=== PATIENT | female | born 1995 | race Caucasian/White ===

== ENCOUNTER → 2017-08-04 | Outpatient (CLI) | payer BC ==
[~2017-08-04] MED LIST: ACET1TAB43 PO; FERR325T18 PO; FRS325T PO; IBP600T1 PO; IBUP-1773 PO; LVF500T PO; METR500T17 PO; ONDA8TAB13 PO; PNV1CAPS13 PO; PREN-53 PO; PROM25TA14 PO; TRAM50TA2 PO
--- NOTE | 2017-08-04 17:35 | Diagnostic Imaging Report ---
INDICATION: Bleeding with IUD. FINDINGS: The uterus measures 7.4 x 4.7 x 4.4 cm. Endometrial thickness is 4 mm. IUD is in satisfactory position. There are no myometrial or endometrial masses. Both ovaries are normal in size and morphology and demonstrate normal blood flow. There are no adnexal masses. IMPRESSION: IUD appears to be in satisfactory position. Otherwise unremarkable pelvic ultrasound. Dictated by: Dictated on workstation # [id number]
== END ==
LOC: RAD 16:57
PROVIDERS: ATTEND Obstetrics & Gynecology
DX: N92.1 Excessive and frequent menstruation with irregular cycle (principal); Z97.5 Presence of (intrauterine) contraceptive device
CPT/HCPCS: 76830; 76856

== ENCOUNTER 2018-02-28 16:10 | Day surgery (SDC) | payer BC ==
[~2018-02-28] VITALS: Ht 160 cm; Wt 78.6 kg
--- NOTE | 2018-02-28 16:25 | ED Abdominal Pain ---
General Stated Complaint: ABD PAIN/VOMITING/CHILLS Source of Information: Patient Exam Limitations: No Limitations History of Present Illness Date Seen by Provider: Feb 28, 2018 Time Seen by Provider: 16:23 Initial Comments To ER with reports of abdominal pain fever nausea. This began yesterday evening at about 7 PM while at a family member's house. The abdominal pain was rather diffuse she had chills and vomited once. No diarrhea or bowel changes. She then went home and tossed and turned throughout the night due to the pain. Today the pain seems a little bit better though it is still present and more localized to the right side of the abdomen. No fevers or chills today. Persistent nausea no vomiting and no bowel changes. Timing/Duration: 12-24 Hours, Changing Over Time Severity/Quality: Moderate Location: Periumbilical Radiation: No Radiation Activities at Onset: None Associated Symptoms: Back Pain, Fever/Chills, Nausea/Vomiting Allergies and Home Medications Allergies Coded Allergies: No Known Drug Allergies (Unverified , 02/28/18) Home Medications Ferrous Sulfate 325 Mg Tablet, 325 MG PO DAILY Prescribed by: JORGE FRIED on 08/13/15826 Ibuprofen 600 Mg Tablet, 600 MG PO Q6H Prescribed by: JORGE FRIED on 08/13/15826 Eke326/Iron Fumarate/FA/Dss 1 Each Tablet, 1 EACH PO DAILY, (Reported) Patient Home Medication List Home Medication List Reviewed: Yes Review of Systems Review of Systems Constitutional: see HPI, chills EENTM: No Symptoms Reported Respiratory: No Symptoms Reported Cardiovascular: No Symptoms Reported Gastrointestinal: See HPI, Abdominal Pain; Denies Constipated, Denies Diarrhea ; Nausea, Vomiting Genitourinary: No Symptoms Reported; Denies Burning, Denies Discharge, Denies Drainage, Denies Frequency, Denies Flank Pain, Denies Hematuria, Denies Incontinence, Denies Pain, Denies Urgency Musculoskeletal: no symptoms reported Skin: no symptoms reported Psychiatric/Neurological: No Symptoms Reported Past Lcrdcmq-Atvcaz-Cmwhbl Hx Patient Social History Recent Foreign Travel: No Contact w/Someone Who Travel: No Immunizations Up To Date Tetanus Booster (TDap): Less than 5yrs Date of Influenza Vaccine: Jun 20, 2015 Past Medical History Asthma Reproductive Disorders: No Female Reproductive Disorders: Denies Sexually Transmitted Disease: No HIV/AIDS: No Loss of Vision: Denies Hearing Impairment: Denies Adverse Reaction/Blood Tranf: No Family Medical History Diabetes mellitus (BROTHER AND GRANDFATHER) Physical Exam Vital Signs Vital Signs - First Documented 02/28/18 16:15 Temp 97.9 Pulse 77 Resp 16 B/P (MAP) 115/86 (96) Pulse Ox 99 Capillary Refill : Height/Weight/BMI Height: 5'3.00" Weight: 188lbs. 0.0oz. 85.726334ip; 33.3 BMI Method: General Appearance: WD/WN, no apparent distress HEENT: PERRL/EOMI Neck: non-tender, full range of motion Respiratory: normal breath sounds, no respiratory distress, no accessory muscle use Cardiovascular: regular rate, rhythm, no murmur Gastrointestinal: normal bowel sounds, soft; No distended, No guarding, No rebound; tenderness Extremities: normal range of motion, non-tender Back: No CVA tenderness (R), No CVA tenderness (L) Neurologic/Psychiatric: alert, normal mood/affect, oriented x 3 Skin: normal color, warm/dry Progress/Results/Core Measures Results/Orders Lab Results Laboratory Tests Test 02/28/18 16:15 02/28/18 16:25 Range/Units Urine Color YELLOW Urine Clarity CLEAR Urine pH 7 5-9 Urine Specific Blanchard 1.010 L 1.016-1.022 Urine Protein NEGATIVE NEGATIVE Urine Glucose (UA) NEGATIVE NEGATIVE Urine Ketones NEGATIVE NEGATIVE Urine Nitrite NEGATIVE NEGATIVE Urine Bilirubin NEGATIVE NEGATIVE Urine Urobilinogen NORMAL NORMAL MG/DL Urine Leukocyte Esterase 1+ H NEGATIVE Urine RBC (Auto) 4+ H NEGATIVE Urine RBC NONE /HPF Urine WBC 0-2 /HPF Urine Squamous Epithelial Cells 5-10 /HPF Urine Crystals NONE /LPF Urine Bacteria FEW H /HPF Urine Casts NONE /LPF Urine Mucus NEGATIVE /LPF Urine Other N /HPF Urine Yeast MODERATE H /HPF Urine Culture Indicated YES White Blood Count 9.7 4.3-11.0 10^3/uL Red Blood Count 4.56 4.35-5.85 10^6/uL Hemoglobin 13.2 11.5-16.0 G/DL Hematocrit 40 35-52 % Mean Corpuscular Volume 88 80-99 FL Mean Corpuscular Hemoglobin 29 25-34 PG Mean Corpuscular Hemoglobin Concent 33 32-36 G/DL Red Cell Distribution Width 13.4 10.0-14.5 % Platelet Count 268 130-400 10^3/uL Mean Platelet Volume 10.3 7.4-10.4 FL Neutrophils (%) (Auto) 67 42-75 % Lymphocytes (%) (Auto) 24 12-44 % Monocytes (%) (Auto) 8 0-12 % Eosinophils (%) (Auto) 1 0-10 % Basophils (%) (Auto) 0 0-10 % Neutrophils # (Auto) 6.5 1.8-7.8 X 10^3 Lymphocytes # (Auto) 2.3 1.0-4.0 X 10^3 Monocytes # (Auto) 0.8 0.0-1.0 X 10^3 Eosinophils # (Auto) 0.1 0.0-0.3 10^3/uL Basophils # (Auto) 0.0 0.0-0.1 10^3/uL Sodium Level 138 135-145 MMOL/L Potassium Level 3.8 3.6-5.0 MMOL/L Chloride Level 105 98-107 MMOL/L Carbon Dioxide Level 22 21-32 MMOL/L Anion Gap 11 5-14 MMOL/L Blood Urea Nitrogen 11 7-18 MG/DL Creatinine 0.67 0.60-1.30 MG/DL Estimat Glomerular Filtration Rate > 60 BUN/Creatinine Ratio 16 Glucose Level 96 70-105 MG/DL Calcium Level 9.5 8.5-10.1 MG/DL Corrected Calcium 9.1 8.5-10.1 MG/DL Total Bilirubin 1.0 0.1-1.0 MG/DL Aspartate Amino Transf (AST/SGOT) 16 5-34 U/L Alanine Aminotransferase (ALT/SGPT) 23 0-55 U/L Alkaline Phosphatase 53 40-136 U/L Total Protein 8.3 H 6.4-8.2 GM/DL Albumin 4.5 3.2-4.5 GM/DL Serum Test, Qualitative NEGATIVE NEGATIVE My Orders Orders - ANNA CAREY APRN Cbc With Automated Diff (02/28/18 16:22) Hcg,Qualitative Serum (02/28/18 16:22) Comprehensive Metabolic Panel (02/28/18 16:22) Ua Culture If Indicated (02/28/18 16:22) Iv Heplock-Insert (Order) (02/28/18 16:22) Ct Abd/Pelv W (Appendicitis) (02/28/18 16:22) Ketorolac Injection (Toradol Injection) (02/28/18 16:30) Ondansetron Injection (Zofran Injectio (02/28/18 16:30) Urine Culture (02/28/18 16:15) Iohexol Injection (Omnipaque 350 Mg/Ml 1 (02/28/18 17:00) Ns (Ivpb) (Sodium Chloride 0.9%) (02/28/18 17:00) Medications Given in ED Current Medications Medications Dose Ordered Sig/Massiel Route Start Time Stop Time Status Last Admin Dose Admin Iohexol 100 ml ONCE ONCE IV 02/28/18 17:00 02/28/18 17:01 DC 02/28/18 16:54 100 ML Ketorolac Tromethamine 15 mg ONCE ONCE IVP 02/28/18 16:30 02/28/18 16:31 DC 02/28/18 16:32 15 MG Ondansetron HCl 4 mg ONCE ONCE IVP 02/28/18 16:30 02/28/18 16:31 DC 02/28/18 16:32 4 MG Sodium Chloride 250 ml ONCE ONCE IV 02/28/18 17:00 02/28/18 17:01 DC 02/28/18 16:54 80 ML Vital Signs/I&O 02/28/18 16:15 Temp 97.9 Pulse 77 Resp 16 B/P (MAP) 115/86 (96) Pulse Ox 99 Diagnostic Imaging Diagonstic Imaging: CT Plain Films/CT/US/NM/MRI: abdomen, pelvis Comments NAME: DENTON DUQUE [facility] REC#: [id number] PT STATUS: REG ER : 1995 PHYSICIAN: ANNA CAREY TOOLROOM CLERK ADMIT DATE: 02/28/18/ER Draft Date of Exam:02/28/18 CT ABD/PELV W (APPENDICITIS) PROCEDURE: CT abdomen and pelvis with contrast, rule out appendicitis. TECHNIQUE: Multiple contiguous axial images were obtained through the abdomen and pelvis after the administration of intravenous contrast. INDICATION: Right lower quadrant pain with nausea, vomiting, and chills x24 hours. CORRELATION STUDY: 12/17/2013. FINDINGS: LOWER THORAX: Clear. LIVER: 8 mm rounded low-density foci in the anterior aspect of the left lobe of the liver are incompletely characterized but favor probable cysts or perhaps hemangioma. GALLBLADDER: Present and unremarkable. No bile duct dilatation. SPLEEN: Unremarkable. PANCREAS: Unremarkable. ADRENAL GLANDS: Unremarkable. KIDNEYS: Normal configuration. No calcification or obstruction. ABDOMINAL AORTA: Unremarkable, nonaneurysmal. GASTROINTESTINAL TRACT: The appendix is located in the right lower quadrant, projects medially and slightly folded on itself. Appendix is abnormally dilated to 12 mm with wall thickening. The remainder of the gastrointestinal tract appearing unremarkable. No obstruction. No abscess formation or free air. URINARY BLADDER: Decompressed. REPRODUCTIVE: Intrauterine contraceptive device is present. Uterus is mildly prominent. Small amount of pelvic fluid. Probable right ovarian cyst. OSSEOUS STRUCTURES: No acute abnormality. OTHER: None. IMPRESSION: 1. The appendix is dilated with what appears to be wall thickening with some enhancement suggestive of likely early or lower-grade changes of acute appendicitis. No evidence for abscess formation or perforation at this time. Dictated on workstation # [id number] Dict: 02/28/18 1709 Trans: 02/28/18 1720 [id number] Interpreted by: ANISA BEST DO Electronically signed by: Departure Impression Primary Impression: Appendicitis Qualified Codes: K35.30 - Acute appendicitis with localized peritonitis, without perforation or gangrene Disposition: ADMITTED INPATIENT Condition: Stable Admissions Decision to Admit Reason: Admit from ER (General) Decision to Admit/Date: Feb 28, 2018 Time/Decision to Admit Time: 17:21 Departure-Patient Inst. Referrals: MARY ANN HARRIS DO (PCP/Family) Primary Care Physician ANNA CAREY APRN Feb 28, 2018 16:25
[2018-02-28] MEDS ORDERED: KETOROLAC 30 MG/ML VIAL IVP ONE (16:30)
[2018-02-28] MEDS ORDERED: ONDANSETRON 4 MG/2 ML (SDV) Z0FRAN IVP ONE (16:30)
[2018-02-28 16:32] LABS: BASOPHILS % (AUTO) 0 % (0-10); EOSINOPHILS # (AUTO) 0.1 10^3/uL (0.0-0.3); EOSINOPHILS % (AUTO) 1 % (0-10); HEMATOCRIT 40 % (35-52); HEMOGLOBIN 13.2 G/DL (11.5-16.0); LYMPHOCYTES # (AUTO) 2.3 X 10^3 (1.0-4.0); LYMPHOCYTES % (AUTO) 24 % (12-44); MEAN CORPUSCULAR HEMOGLOBIN 29 PG (25-34); MEAN CORPUSCULAR HGB CONC 33 G/DL (32-36); MEAN CORPUSCULAR VOLUME 88 FL (80-99); MEAN PLATELET VOLUME 10.3 FL (7.4-10.4); MONOCYTES # (AUTO) 0.8 X 10^3 (0.0-1.0); MONOCYTES % (AUTO) 8 % (0-12); NEUTROPHILS # (AUTO) 6.5 X 10^3 (1.8-7.8); NEUTROPHILS % (AUTO) 67 % (42-75); PLATELET COUNT 268 10^3/uL (130-400); RED BLOOD COUNT 4.56 10^6/uL (4.35-5.85); RED CELL DISTRIBUTION WIDTH 13.4 % (10.0-14.5); WHITE BLOOD COUNT 9.7 10^3/uL (4.3-11.0)
[2018-02-28 16:33] LABS: BILIRUBIN,URINE NEGATIVE (NEGATIVE); CLARITY,URINE CLEAR; COLOR,URINE YELLOW; GLUCOSE, URINE (UA) NEGATIVE (NEGATIVE); KETONES,URINE NEGATIVE (NEGATIVE); LEUKOCYTE ESTERASE ,URINE 1+ (NEGATIVE); NITRITE,URINE NEGATIVE (NEGATIVE); PH,URINE 7 (5-9); PROTEIN,URINE NEGATIVE (NEGATIVE); UROBILINOGEN,URINE NORMAL (NORMAL)
[2018-02-28 16:42] LABS: BACTERIA,URINE FEW /HPF; WBC,URINE 0-2 /HPF
[2018-02-28 16:43] LABS: URINE OTHER N /HPF; YEAST,URINE MODERATE /HPF
[2018-02-28 16:57] LABS: ALANINE AMINOTRANSFERASE 23 U/L (0-55); ALBUMIN 4.5 GM/DL (3.2-4.5); ALKALINE PHOSPHATASE 53 U/L (40-136); BUN/CREATININE RATIO 16; CALCIUM 9.5 MG/DL (8.5-10.1); CARBON DIOXIDE 22 MMOL/L (21-32); CHLORIDE 105 MMOL/L (98-107); CREATININE SERUM 0.67 MG/DL (0.60-1.30); GFR ESTIMATED > 60; GLUCOSE 96 MG/DL (70-105); POTASSIUM 3.8 MMOL/L (3.6-5.0); SODIUM 138 MMOL/L (135-145); TOTAL PROTEIN 8.3 GM/DL (6.4-8.2)
[2018-02-28] MEDS ORDERED: IOHEXOL 350 MG/ML 100 ML (OMNIPAQUE 350) VIAL IV ONE (17:00)
[2018-02-28] MEDS ORDERED: NS 250 ML (IVPB) BAG IV ONE (17:00)
--- NOTE | 2018-02-28 17:20 | Diagnostic Imaging Report ---
PROCEDURE: CT abdomen and pelvis with contrast, rule out appendicitis. TECHNIQUE: Multiple contiguous axial images were obtained through the abdomen and pelvis after the administration of intravenous contrast. INDICATION: Right lower quadrant pain with nausea, vomiting, and chills x24 hours. CORRELATION STUDY: 12/17/2013. FINDINGS: LOWER THORAX: Clear. LIVER: 8 mm rounded low-density foci in the anterior aspect of the left lobe of the liver are incompletely characterized but favor probable cysts or perhaps hemangioma. GALLBLADDER: Present and unremarkable. No bile duct dilatation. SPLEEN: Unremarkable. PANCREAS: Unremarkable. ADRENAL GLANDS: Unremarkable. KIDNEYS: Normal configuration. No calcification or obstruction. ABDOMINAL AORTA: Unremarkable, nonaneurysmal. GASTROINTESTINAL TRACT: The appendix is located in the right lower quadrant, projects medially and slightly folded on itself. Appendix is abnormally dilated to 12 mm with wall thickening. The remainder of the gastrointestinal tract appearing unremarkable. No obstruction. No abscess formation or free air. URINARY BLADDER: Decompressed. REPRODUCTIVE: Intrauterine contraceptive device is present. Uterus is mildly prominent. Small amount of pelvic fluid. Probable right ovarian cyst. OSSEOUS STRUCTURES: No acute abnormality. OTHER: None. IMPRESSION: 1. The appendix is dilated with what appears to be wall thickening with some enhancement suggestive of likely early or lower-grade changes of acute appendicitis. No evidence for abscess formation or perforation at this time. Dictated by: Dictated on workstation # [id number]
[2018-02-28] MEDS ORDERED: LACTATED RINGERS 1,000 ML IV SCH (17:30)
--- OUTSIDE RECORDS SUMMARY | 2018-02-28 18:49 | XMS REPORT ---
Author Author JONATHAN DAVIS [facility] Address [address] [place] [address] Care Team Providers Care Reduction Furnace Operator Name Role Phone JONATHAN DAVIS Unavailable PROBLEMS Unknown Problems ALLERGIES No Information SOCIAL HISTORY Never Assessed PLAN OF CARE VITAL SIGNS MEDICATIONS No Known Medications RESULTS No Results PROCEDURES Procedure Date Ordered Result Body Site PULMONARY FUNCTION TEST (IN-HOUSE) 2016-10-08 N/A RESPIRATORY FLOW VOLUME LOOP October 08, 2016 SPIROMETRY October 08, 2016 NEB/KYLE DEMO October 08, 2016 SPRIOMETRY CHALLENGE October 08, 2016 IMMUNIZATIONS No Known Immunizations
--- OUTSIDE RECORDS SUMMARY | 2018-02-28 18:49 | XMS REPORT ---
Author Author JONATHAN DAVIS [facility] Address [address] [place] [address] Care Team Providers Care Fire Marshal Refinery Name Role Phone JONATHAN DAVIS Unavailable PROBLEMS Unknown Problems ALLERGIES No Information SOCIAL HISTORY Never Assessed PLAN OF CARE VITAL SIGNS MEDICATIONS No Known Medications RESULTS No Results PROCEDURES No Known procedures IMMUNIZATIONS No Known Immunizations
--- OUTSIDE RECORDS SUMMARY | 2018-02-28 18:50 | XMS REPORT ---
Author Author JONATHAN DAVIS [facility] Address [address] [place] [address] Care Team Providers Care Studio Control Operator Name Role Phone JONATHAN DAVIS Unavailable PROBLEMS Unknown Problems ALLERGIES No Known Allergies SOCIAL HISTORY Never Assessed PLAN OF CARE Activity Details Follow Up prn Reason: VITAL SIGNS Height 63 in 2016-09-29 Weight 163 lbs 2016-09-29 Temperature 98.2 degrees Fahrenheit 2016-09-29 Heart Rate 64 bpm 2016-09-29 Respiratory Rate 18 2016-09-29 Oximetry on room air:99 % 2016-09-29 BMI 28.87 kg/m2 2016-09-29 Blood pressure systolic 100 mmHg 2016-09-29 Blood pressure diastolic 70 mmHg 2016-09-29 MEDICATIONS Medication Instructions Dosage Frequency Start Date End Date Duration Status Mirena Active RESULTS Name Result Date Reference Range CBC 2016-09-29 WBC 6.2 3.4-10.8 RBC 4.44 3.77-5.28 Hemoglobin 12.4 11.1-15.9 Hematocrit 38.7 34.0-46.6 MCV 87 79-97 MCH 27.9 26.6-33.0 MCHC 32.0 31.5-35.7 RDW 14.1 12.3-15.4 Platelets 266 150-379 Neutrophils 47 Lymphs 40 Monocytes 8 Eos 5 Basos 0 Neutrophils (Absolute) 2.8 1.4-7.0 Lymphs (Absolute) 2.5 0.7-3.1 Monocytes(Absolute) 0.5 0.1-0.9 Eos (Absolute) 0.3 0.0-0.4 Baso (Absolute) 0.0 0.0-0.2 Immature Granulocytes 0 Immature Grans (Abs) 0.0 0.0-0.1 PROCEDURES Procedure Date Ordered Result Body Site MEASURE BLOOD OXYGEN LEVEL September 29, 2016 COMPLETE CBC W/AUTO DIFF WBC September 29, 2016 COMPREHEN METABOLIC PANEL September 29, 2016 VENIPUNCT, ROUTINE* September 29, 2016 IMMUNIZATIONS No Known Immunizations
--- OUTSIDE RECORDS SUMMARY | 2018-02-28 18:50 | XMS REPORT | Continuity of Care Document ---
Author Author [facility] Address Unknown Phone Unavailable Allergies There is no data. Medications There is no data. Problems Date Dx Coded Attending Type Code Diagnosis Diagnosed By 11/12/2007 462 Pharyngitis Acute 11/12/2007 462 Pharyngitis Acute 11/12/2007 462 Pharyngitis Acute 11/12/2007 RAJESH HILL DO 462 Pharyngitis Acute 11/12/2007 462 Pharyngitis Acute 11/12/2007 462 Pharyngitis Acute 11/12/2007 RAJESH HILL DO 462 Pharyngitis Acute 11/12/2007 462 Pharyngitis Acute 11/12/2007 RAJESH HILL DO 462 Pharyngitis Acute 11/12/2007 RAJESH HILL DO 462 Pharyngitis Acute 08/09/2008 477.9 ALLERGIC RHINITIS 08/09/2008 493.02 Asthma Extrinsic - With Acute Exacerbation 08/09/2008 477.9 ALLERGIC RHINITIS 08/09/2008 493.02 Asthma Extrinsic - With Acute Exacerbation 08/09/2008 477.9 ALLERGIC RHINITIS 08/09/2008 493.02 Asthma Extrinsic - With Acute Exacerbation 08/09/2008 RAJESH HILL DO 477.9 ALLERGIC RHINITIS 08/09/2008 RAJESH HILL DO 493.02 Asthma Extrinsic - With Acute Exacerbation 08/09/2008 477.9 ALLERGIC RHINITIS 08/09/2008 493.02 Asthma Extrinsic - With Acute Exacerbation 08/09/2008 477.9 ALLERGIC RHINITIS 08/09/2008 493.02 Asthma Extrinsic - With Acute Exacerbation 08/09/2008 RAJESH HILL DO 477.9 ALLERGIC RHINITIS 08/09/2008 RAJESH HILL DO 493.02 Asthma Extrinsic - With Acute Exacerbation 08/09/2008 477.9 ALLERGIC RHINITIS 08/09/2008 493.02 Asthma Extrinsic - With Acute Exacerbation 08/09/2008 RAJESH HILL DO 477.9 ALLERGIC RHINITIS 08/09/2008 RAJESH HILL DO 493.02 Asthma Extrinsic - With Acute Exacerbation 08/09/2008 RAJESH HILL DO 477.9 ALLERGIC RHINITIS 08/09/2008 RAJESH HILL DO 493.02 Asthma Extrinsic - With Acute Exacerbation 08/13/2008 493.92 Asthma With Acute Exacerbation 08/13/2008 493.92 Asthma With Acute Exacerbation 08/13/2008 493.92 Asthma With Acute Exacerbation 08/13/2008 RAJESH HILL DO 493.92 Asthma With Acute Exacerbation 08/13/2008 493.92 Asthma With Acute Exacerbation 08/13/2008 493.92 Asthma With Acute Exacerbation 08/13/2008 RAJESH HILL DO 493.92 Asthma With Acute Exacerbation 08/13/2008 493.92 Asthma With Acute Exacerbation 08/13/2008 RAJESH HILL DO 493.92 Asthma With Acute Exacerbation 08/13/2008 RAJESH HILL DO 493.92 Asthma With Acute Exacerbation 09/13/2008 493.90 ASTHMA 09/13/2008 719.46 Patellofemoral Syndrome Left 09/13/2008 V20.2 Visit For: Well Child Visit 09/13/2008 493.90 ASTHMA 09/13/2008 719.46 Patellofemoral Syndrome Left 09/13/2008 V20.2 Visit For: Well Child Visit 09/13/2008 493.90 ASTHMA 09/13/2008 719.46 Patellofemoral Syndrome Left 09/13/2008 V20.2 Visit For: Well Child Visit 09/13/2008 RAJESH HILL DO 493.90 ASTHMA 09/13/2008 RAJESH HILL DO 719.46 Patellofemoral Syndrome Left 09/13/2008 RAJESH HILL DO V20.2 Visit For: Well Child Visit 09/13/2008 493.90 ASTHMA 09/13/2008 719.46 Patellofemoral Syndrome Left 09/13/2008 V20.2 Visit For: Well Child Visit 09/13/2008 493.90 ASTHMA 09/13/2008 719.46 Patellofemoral Syndrome Left 09/13/2008 V20.2 Visit For: Well Child Visit 09/13/2008 RAJESH HILL DO 493.90 ASTHMA 09/13/2008 RAJESH HILL DO 719.46 Patellofemoral Syndrome Left 09/13/2008 RJAESH HILL DO K V20.2 Visit For: Well Child Visit 09/13/2008 493.90 ASTHMA 09/13/2008 719.46 Patellofemoral Syndrome Left 09/13/2008 V20.2 Visit For: Well Child Visit 09/13/2008 HILL EVELYN LEÓNA K 493.90 ASTHMA 09/13/2008 LIZ LEÓN RAJESH K 719.46 Patellofemoral Syndrome Left 09/13/2008 HILL RAJESH LEÓN K V20.2 Visit For: Well Child Visit 09/13/2008 RAJESH HILL DO K 493.90 ASTHMA 09/13/2008 HILL EVELYN LEÓNA K 719.46 Patellofemoral Syndrome Left 09/13/2008 HILL RAJESH LEÓN K V20.2 Visit For: Well Child Visit 02/21/2009 461.0 Acute Maxillary Sinusitis 02/21/2009 461.0 Acute Maxillary Sinusitis 02/21/2009 461.0 Acute Maxillary Sinusitis 02/21/2009 RAJESH HILL DO K 461.0 Acute Maxillary Sinusitis 02/21/2009 461.0 Acute Maxillary Sinusitis 02/21/2009 461.0 Acute Maxillary Sinusitis 02/21/2009 RAJESH HILL DO K 461.0 Acute Maxillary Sinusitis 02/21/2009 461.0 Acute Maxillary Sinusitis 02/21/2009 RAJESH HILL DO K 461.0 Acute Maxillary Sinusitis 02/21/2009 HILL RAJESH LEÓN K 461.0 Acute Maxillary Sinusitis 10/14/2011 V06.1 Tdap Dx 10/14/2011 V06.1 Tdap Dx 10/14/2011 V06.1 Tdap Dx 10/14/2011 RAJESH HILL DO K V06.1 Tdap Dx 10/14/2011 V06.1 Tdap Dx 10/14/2011 V06.1 Tdap Dx 10/14/2011 RAJESH HILL DO K V06.1 Tdap Dx 10/14/2011 V06.1 Tdap Dx 10/14/2011 RAJESH HILL DO K V06.1 Tdap Dx 10/14/2011 RAJESH HILL DO K V06.1 Tdap Dx 11/09/2011 NODX No Diagnosis 11/09/2011 V72.42 Test Positive Result 11/09/2011 NODX No Diagnosis 11/09/2011 V72.42 Test Positive Result 11/09/2011 NODX No Diagnosis 11/09/2011 V72.42 Test Positive Result 11/09/2011 HILL DOEVELYNA K NODX No Diagnosis 11/09/2011 HILL DOEVELYNA K V72.42 Test Positive Result 11/09/2011 NODX No Diagnosis 11/09/2011 V72.42 Test Positive Result 11/09/2011 NODX No Diagnosis 11/09/2011 V72.42 Test Positive Result 11/09/2011 HILL DORAJESH K NODX No Diagnosis 11/09/2011 HILL DOEVELYNA K V72.42 Test Positive Result 11/09/2011 NODX No Diagnosis 11/09/2011 V72.42 Test Positive Result 11/09/2011 HILL DOEVELYNA K NODX No Diagnosis 11/09/2011 HILL DOEVELYNA K V72.42 Test Positive Result 11/09/2011 HILL DOEVELYNA K NODX No Diagnosis 11/09/2011 HILL DOEVELYNA K V72.42 Test Positive Result 11/30/2011 V22.0 , NORMAL FIRST 11/30/2011 V22.0 , NORMAL FIRST 11/30/2011 V22.0 , NORMAL FIRST 11/30/2011 RAJESH HILL DO V22.0 , NORMAL FIRST 11/30/2011 V22.0 , NORMAL FIRST 11/30/2011 V22.0 , NORMAL FIRST 11/30/2011 HILL DORAJESH K V22.0 , NORMAL FIRST 11/30/2011 V22.0 , NORMAL FIRST 11/30/2011 HILL DORAJESH K V22.0 , NORMAL FIRST 11/30/2011 HILL DORAJESH K V22.0 , NORMAL FIRST 12/21/2011 V74.5 Std Screen 12/21/2011 V74.5 Std Screen 12/21/2011 V74.5 Std Screen 12/21/2011 HILL DORAJESH K V74.5 Std Screen 12/21/2011 V74.5 Std Screen 12/21/2011 V74.5 Std Screen 12/21/2011 HILL DOEVELYNA K V74.5 Std Screen 12/21/2011 V74.5 Std Screen 12/21/2011 LIZ LEÓN RAJESH K V74.5 Std Screen 12/21/2011 EVELYN HILL DOChi Batres V74.5 Std Screen 02/03/2012 787.91 Diarrhea 02/03/2012 787.91 Diarrhea 02/03/2012 787.91 Diarrhea 02/03/2012 RAJESH HILL DO Medardo 787.91 Diarrhea 02/03/2012 787.91 Diarrhea 02/03/2012 787.91 Diarrhea 02/03/2012 LIZ LEÓN RAJESH Batres 787.91 Diarrhea 02/03/2012 787.91 Diarrhea 02/03/2012 LIZ LEÓN RAJESH Batres 787.91 Diarrhea 02/03/2012 LIZ LEÓN RAJESH Batres 787.91 Diarrhea 03/10/2012 V04.81 FLU SHOT 03/10/2012 V04.81 FLU SHOT 03/10/2012 V04.81 FLU SHOT 03/10/2012 RAJESH HILL DO V04.81 FLU SHOT 03/10/2012 V04.81 FLU SHOT 03/10/2012 V04.81 FLU SHOT 03/10/2012 RAJESH HILL DO V04.81 FLU SHOT 03/10/2012 V04.81 FLU SHOT 03/10/2012 LIZ LEÓN RAJESH Batres V04.81 FLU SHOT 03/10/2012 LIZ LEÓN RAJESH Batres V04.81 FLU SHOT 05/25/2012 648.20 COMPL OF - ANEMIA 05/25/2012 RAJESH HILL DO 648.20 COMPL OF - ANEMIA 05/25/2012 648.20 COMPL OF - ANEMIA 05/25/2012 648.20 COMPL OF - ANEMIA 05/25/2012 RAJESH HILL DO 648.20 COMPL OF - ANEMIA 05/25/2012 648.20 COMPL OF - ANEMIA 05/25/2012 RAJESH HILL DO 648.20 COMPL OF - ANEMIA 06/15/2012 V06.1 TDAP DX 06/15/2012 V06.1 TDAP DX 06/15/2012 RAJESH HILL DO V06.1 TDAP DX 06/15/2012 V06.1 TDAP DX 06/15/2012 RAJESH HILL DO V06.1 TDAP DX 09/05/2012 RAJESH HILL DO V24.2 F/U, ROUTINE 09/05/2012 RAJESH HILL DO V25.01 CONTRACEPTION - ORAL CONTRACEPTION 09/05/2012 RAJESH HILL DO V65.49 OTHER SPECIFIED COUNSELING Procedures Code Description [place] [address] UA OB DIP 03/10/2012 44181 ROUTINE VENIPUNCTURE 04/06/2012 34913 UA OB DIP 04/06/2012 32257 CBC 04/06/2012 71304 GLUCOSE OTILIO 1 HOUR 04/06/2012 87399 UA OB DIP 04/25/2012 25993 UA OB DIP 05/11/2012 34672 UA OB DIP 05/25/2012 77233 HEMOGLOBIN (IN-HOUSE) 06/08/2012 84156 UA OB DIP 06/08/2012 97016 CULTURE GROUP B STREP VAG 06/09/2012 15637 UA OB DIP 06/22/2012 22426 UA OB DIP 06/29/2012 21081 UA OB DIP 07/04/2012 Results There is no data. Encounters ACCT No. Visit Date/Time Discharge Status Pt. Type Provider Facility Loc./Unit Complaint [id number] 09/05/2012 15:44:00 09/05/2012 23:59:59 CLS Outpatient RAJESH HILL DO [id number] 07/04/2012 15:19:00 07/04/2012 23:59:59 CLS Outpatient RAJESH HILL DO [id number] 06/29/2012 09:31:00 06/29/2012 23:59:59 CLS Outpatient [id number] 06/22/2012 15:07:00 06/22/2012 23:59:59 CLS Outpatient [id number] 06/08/2012 16:18:00 06/08/2012 23:59:59 CLS Outpatient RAJESH HILL DO [id number] 05/25/2012 15:53:00 05/25/2012 23:59:59 CLS Outpatient [id number] 05/11/2012 15:04:00 05/11/2012 23:59:59 CLS Outpatient [id number] 04/25/2012 14:07:00 04/25/2012 23:59:59 CLS Outpatient [id number] 03/10/2012 10:14:00 03/10/2012 23:59:59 CLS Outpatient RAJESH HILL DO [id number] 08/01/2012 14:01:00 Document Registration
--- NOTE | 2018-02-28 18:59 | Consultation ---
History of Present Illness History of Present Illness Patient Consulted On(sarah/time) 02/28/18 18:50 Time Seen by Provider: 18:31 History of Present Illness Surgery asked to consult regarding acute appendicitis. HPI per ED: To ER with reports of abdominal pain fever nausea. This began yesterday evening at about 7 PM while at a family member's house. The abdominal pain was rather diffuse she had chills and vomited once. No diarrhea or bowel changes. She then went home and tossed and turned throughout the night due to the pain. Today the pain seems a little bit better though it is still present and more localized to the right side of the abdomen. No fevers or chills today. Persistent nausea no vomiting and no bowel changes. Timing/Duration: 12-24 Hours, Changing Over Time Severity/Quality: Moderate Location: Periumbilical Radiation: No Radiation Activities at Onset: None Associated Symptoms: Back Pain, Fever/Chills, Nausea/Vomiting Pt describes the pain as sharp, stabbing and points to RLQ. She states it started in the umbilical area and went to right. Allergies and Home Medications Allergies Coded Allergies: No Known Drug Allergies (Unverified , 02/28/18) Home Medications Ferrous Sulfate 325 Mg Tablet, 325 MG PO DAILY Prescribed by: JORGE FRIED on 08/13/15826 Ibuprofen 600 Mg Tablet, 600 MG PO Q6H Prescribed by: JORGE FRIED on 08/13/15826 Qpv159/Iron Fumarate/FA/Dss 1 Each Tablet, 1 EACH PO DAILY, (Reported) Patient Home Medication List Home Medication List Reviewed: Yes Past Opupzbj-Owmbce-Oweoop Hx Patient Social History Alcohol Use: Denies Use Recreational Drug Use: No Smoking Status: Never a Smoker 2nd Hand Smoke Exposure: No Recent Foreign Travel: No Contact w/Someone Who Travel: No Recent Infectious Disease Expo: No Immunizations Up To Date Tetanus Booster (TDap): Less than 5yrs Date of Influenza Vaccine: Jun 20, 2015 Surgeries History of Surgeries: No Respiratory History of Respiratory Disorde: No Respiratory Disorders: Asthma Cardiovascular History of Cardiac Disorders: No Neurological History of Neurological Disord: No Reproductive System Hx Reproductive Disorders: No Sexually Transmitted Disease: No HIV/AIDS: No Female Reproductive Disorders: Denies Gastrointestinal History of Gastrointestinal Di: No Musculoskeletal History of Musculoskeletal Dis: No Endocrine History of Endocrine Disorders: No HEENT Loss of Vision: Denies Hearing Impairment: Denies Cancer History of Cancer: No Psychosocial History of Psychiatric Problem: No Integumentary History of Skin or Integumenta: No Blood Transfusions History of Blood Disorders: Yes (Anemia) Adverse Reaction to a Blood Tr: No Family Medical History Significant Family History: Diabetes (brother) Family Medial History: Diabetes mellitus (BROTHER AND GRANDFATHER) Review of Systems-General Constitutional: chills; No dizziness; malaise EENTM: No blurred vision, No double vision, No mouth pain, No mouth swelling, No epistaxis, No throat swelling Respiratory: No cough, No dyspnea on exertion Cardiovascular: No chest pain, No edema, No palpitations Gastrointestinal: RLQ, abdominal pain; No hematemesis, No jaundice; loss of appetite Genitourinary: No dysuria, No frequency, No hematuria Musculoskeletal: No back pain, No joint pain, No muscle pain Skin: No change in color, No change in hair/nails Psychiatric/Neurological: Denies Anxiety, Denies Depressed, Denies Seizure, Denies Tremors Other pt denies any abnormal bleeding or bruising, no heat or cold intolerance Physical Exam-General Problems Physical Exam Vital Signs Vital Signs - First Documented 02/28/18 16:15 Temp 97.9 Pulse 77 Resp 16 B/P (MAP) 115/86 (96) Pulse Ox 99 Capillary Refill : Less Than 3 Seconds General Appearance: WD/WN, mild distress Eyes: Bilateral Eye PERRL, Bilateral Eye EOMI HEENT: pharynx normal; No scleral icterus (R), No scleral icterus (L), No pale conjunctivae (R), No pale conjunctivae (L) Neck: non-tender, full range of motion, supple, normal inspection Respiratory: chest non-tender, lungs clear, normal breath sounds, no respiratory distress, no accessory muscle use Cardiovascular: regular rate, rhythm, no edema, no gallop, no murmur Gastrointestinal: normal bowel sounds, soft, no organomegaly, no pulsatile mass , guarding (voluntary), tenderness (RLQ) Back: normal inspection, no CVA tenderness, no vertebral tenderness Extremities: normal range of motion, non-tender, normal inspection, no pedal edema, no calf tenderness Neurologic/Psychiatric: trip follower II-XII nml as tested, no motor/sensory deficits, alert, normal mood/affect, oriented x 3 Skin: normal color, warm/dry Lymphatic: no adenopathy (neck, axilla or groin) Data Review Labs Laboratory Tests 02/28/18 16:15: Urine Color YELLOW, Urine Clarity CLEAR, Urine pH 7, Urine Specific [place] 1.010L, Urine Protein NEGATIVE, Urine Glucose (UA) NEGATIVE, Urine Ketones NEGATIVE, Urine Nitrite NEGATIVE, Urine Bilirubin NEGATIVE, Urine Urobilinogen NORMAL, Urine Leukocyte Esterase 1+H, Urine RBC (Auto) 4+H, Urine RBC NONE, Urine WBC 0-2, Urine Squamous Epithelial Cells 5-10, Urine Crystals NONE, Urine Bacteria FEWH, Urine Casts NONE, Urine Mucus NEGATIVE, Urine Other N, Urine Yeast MODERATEH, Urine Culture Indicated YES 02/28/18 16:25: White Blood Count 9.7, Red Blood Count 4.56, Hemoglobin 13.2, Hematocrit 40, Mean Corpuscular Volume 88, Mean Corpuscular Hemoglobin 29, Mean Corpuscular Hemoglobin Concent 33, Red Cell Distribution Width 13.4, Platelet Count 268, Mean Platelet Volume 10.3, Neutrophils (%) (Auto) 67, Lymphocytes (%) (Auto) 24 , Monocytes (%) (Auto) 8, Eosinophils (%) (Auto) 1, Basophils (%) (Auto) 0, Neutrophils # (Auto) 6.5, Lymphocytes # (Auto) 2.3, Monocytes # (Auto) 0.8, Eosinophils # (Auto) 0.1, Basophils # (Auto) 0.0, Sodium Level 138, Potassium Level 3.8, Chloride Level 105, Carbon Dioxide Level 22, Anion Gap 11, Blood Urea Nitrogen 11, Creatinine 0.67, Estimat Glomerular Filtration Rate > 60, BUN/ Creatinine Ratio 16, Glucose Level 96, Calcium Level 9.5, Corrected Calcium 9.1 , Total Bilirubin 1.0, Aspartate Amino Transf (AST/SGOT) 16, Alanine Aminotransferase (ALT/SGPT) 23, Alkaline Phosphatase 53, Total Protein 8.3H, Albumin 4.5, Serum Test, Qualitative NEGATIVE Assessment/Plan Assessment/Plan Assessment/Plan Acute Appendicitis I discussed the diagnosis with the pt and her ; CT read as acute appendicitis and her story is classic for appendicitis. She does meet criteria to try ABX management only; WBC less than 14, no appendicolith and no signs of perforation. Of those pt's treated with ABX who get better by the next day 25-40% of them will come back within a month ( although some longer) for an appendectomy. We can do a laparoscopic appendectomy (possible open) now and she could probably go home tonight. We discussed risks and complications; not limited to pain, bleeding, infection, scar and damage to bowel. All questions answered to their satisfation; she wants to just get it out..."I don't want to go through the pain I went through again." She will be started on IV fluids, she is NPO, IV ABX before we start case and will get pain control plus anti-emetics as needed. CLIVE CORONA DO Feb 28, 2018 18:59
[2018-02-28] MEDS ORDERED: ceFAZolin 2 GM IV Premixed 50 ML IV ONE (19:00)
[2018-02-28] MEDS ORDERED: MIDAZOLAM 2 MG/2 ML (VERSED) VIAL ONE (19:10)
[2018-02-28] MEDS ORDERED: ONDANSETRON 4 MG/2 ML (SDV) Z0FRAN ONE ×2 (19:10→20:10)
[2018-02-28] MEDS ORDERED: LIDOCAINE PF 2% 5 ML (XYLOCAINE) VIAL ONE (19:10)
[2018-02-28] MEDS ORDERED: SUCCINYLCHOLINE INJ 100 MG/5 ML SYR ONE (19:10)
[2018-02-28] MEDS ORDERED: ROCURONIUM 10 MG/ML 5 ML SYRINGE IV ONE (19:10)
[2018-02-28] MEDS ORDERED: proPOfol 200 MG/20 ML (DIPRIVAN) VIAL IV ONE (19:10)
[2018-02-28] MEDS ORDERED: fentaNYL INJECTION 100 MCG/2 ML AMP ONE (19:11)
[2018-02-28] MEDS ORDERED: LIDOCAINE/EPI 1%-1:200,000 (XYLOCAINE) 10 ML VIAL ONE (19:11)
[2018-02-28] MEDS ORDERED: SEVOFLURANE (ULTANE) 15 ML INHAL SOLN ONE (19:45)
[2018-02-28] MEDS ORDERED: NEOSTIGMINE 1 MG/ML 5 ML SYRINGE ONE (20:05)
[2018-02-28] MEDS ORDERED: GLYCOPYRROLATE 0.2 MG/ML (ROBINUL) 2 ML VIAL ONE (20:05)
--- NOTE | 2018-02-28 20:08 | Progress Note-Post Operative ---
Post-Operative Progess Note Surgeon (s)/Dynamo Repairer (s) Surgeon CLIVE CORONA DO Dynamo Repairer: none Pre-Operative Diagnosis Acute appy Post-Operative Diagnosis same plus b/l inguinal hernia Procedure & Operative Findings Date of Procedure 02/28/18 Procedure Performed/Findings Lap appy Anesthesia Type GET Estimated Blood Loss Estimated blood loss (mL): scant Specimens/Packing Specimens Removed CLIVE Arciniega DO Feb 28, 2018 20:08
[2018-02-28] MEDS ORDERED: ACHD5005 PO (20:09)
[2018-02-28] MEDS ORDERED: HYDROmorphone 2 MG/ML VIAL (DILAUDID) ONE (20:09)
[2018-02-28] MEDS ORDERED: morphine INJ 10 MG/ML 1ML (SYR OR VIAL) ONE (20:10)
--- NOTE | 2018-02-28 20:12 | Discharge Inst-Surgical ---
Discharge Inst-Surgical Depart Medication/Instructions New, Converted or Re-Newed RX: RX Given to Pt/Family Patient Instructions Follow up Appt: Make appointment for 1 week. Instructions: No lifting greater than 30 pounds. No strenuous activity. May shower in 24 hours, no tub bath or soaking. Use incentive spirometer at home as directed. No Smoking Skin/Wound Care: May remove bandages in am. You need to leave the Dermabond on over incision it will fall off on its own. Symptoms to Report: Appetite Changes, Extremity Discoloration, Numbness/Tingling, Swelling Increased , Bleeding Excessive, Eyesight Changes, Pain Increased, Urine Color Change, Constipation(Persistent), Fever over 101 degree F, Pain/Pressure in chest, Urinating Difficulty, Cough Up/Vomit Blood, Heart Beat Irreg/Pounding, Pain/ Pressure in jaw, Vaginal Bleeding Increase, Cramps in feet or legs, Lightheadedness, Pain/Pressure in shoulder, Diarrhea(Persistent), Memory Changes Suddenly, Questions/Concerns, Weight gain consecutive days, Dizziness/ Fainting, Nausea/Vomiting, Shortness of Breath, Weight gain over 2 pounds If questions or concerns contact your physician Or seek help at emergency department. Activity Activity as Tolerated: Yes Driving Instructions: No Driving/Refer to Diet Discharge Diet: No Restrictions Diet After 24 Hours: Clear Liquid if Nauseous If Any Problems/Questions/Issu: Contact Your Physician, Go to Emergency Room, Go to [facility] Care Skin/Wound Care Infection Signs and Symptoms: Increased Redness, Foul Odor of Wound, Increased Drainage, Skin Itchy or Has a Rash, Increased Swelling, Temperature Above 101 F Wound Care Comment: use heating pad to shoulder and neck for pain tonight Bathing Instructions: Shower Stitches/[place]/Dermabond Dis: Dermabond Ice Pack: Ice On and Off Site (as needed for pain) CLIVE CORONA DO Feb 28, 2018 20:12
[2018-02-28] MEDS ORDERED: morphine INJ 10 MG/ML 1ML (SYR OR VIAL) IVP ONE (20:30)
[2018-02-28] MEDS ORDERED: MEPERIDINE (DEMEROL) INJ 50 MG/ML IVP ONE (20:30)
[2018-02-28] MEDS ORDERED: PROMETHAZINE INJ 25 MG/ML (PHENERGAN) AMP IVP ONE (20:30)
[2018-02-28] MEDS ORDERED: ONDANSETRON 4 MG/2 ML (SDV) Z0FRAN IVP PRN (20:30)
[2018-02-28] MEDS ORDERED: HYDROmorphone 2 MG/ML VIAL (DILAUDID) IV ONE (20:30)
[2018-02-28 21:30] VITALS: BP 108/67
[2018-03-01] VITALS: BP 92/57
[2018-03-01] MEDS: HYDROcodone/APAP 5 MG/325 MG (LORTAB) TAB PO PRN ×2 (00:09→08:23)
[2018-03-01] MEDS ORDERED: ONDANSETRON 4 MG/2 ML (SDV) Z0FRAN IVP PRN (03:15)
[2018-03-01 04:00] VITALS: BP 94/52
--- NOTE | 2018-03-01 04:58 | OPERATIVE REPORT ---
DATE OF SERVICE: PREOPERATIVE DIAGNOSIS: Acute appendicitis. POSTOPERATIVE DIAGNOSIS: Acute appendicitis. PROCEDURE: Laparoscopic appendectomy. SURGEON: oRnald Macias DO. CENTRAL OFFICE REPAIRER: None. ANESTHESIA: General endotracheal tube. SPECIMEN: Appendix. BLOOD LOSS: Scant. FLUIDS: Per anesthesia. POSTOPERATIVE CONDITION: Stable. INDICATION FOR PROCEDURE: The patient is a 22-year-old female who came in with abdominal pain that began in the umbilicus and then went to the right lower quadrant, pretty classic for appendicitis. She did have a normal white count but a CAT scan showed a 12 mm appendix and was read as acute appendicitis. No signs of perforation. FINDINGS: The patient had inflamed appendix. She also was noted to have bilateral indirect inguinal hernia. Pictures were taken. PROCEDURE NOTE: After informed consent was obtained, the patient was brought to the operating room, placed on the table in supine position. She was sterilely prepped and draped in normal fashion. Local lidocaine was used to infiltrate the skin above the umbilicus, then made incision with #11 blade, carried down through the skin into subcutaneous tissue, then deepened down to subcutaneous tissue with Bovie electrocautery down to the fascia. Fascia incised with Bovie electrocautery, then bluntly entered the abdomen, swept a finger around, placed 0 Vicryl [id number] suture, then placed an 11 mm trocar port under direct visualization. Created pneumoperitoneum and then placed 2 more ports in normal fashion using local lidocaine, 11 blade for stab incision and the VersaStep system, all done under direct visualization, one suprapubically and one in left lower quadrant. Upon entry, noted the bilateral indirect inguinal hernias, took a picture of this and then able to place the patient slightly Trendelenburg and rotated to left. Removed the cecum and able to identify the appendix, it was inflamed and thickened. No signs of perforation. Able to come across the mesoappendix in a stepwise fashion using LigaSure, clamping, coagulating and transecting and in this fashion coming across until the appendix was only attached to the cecum, could see the terminal ileum coming into the cecum. Switched to 5 mm camera, brought Endo-SHANTELL in and then placed across the base of the appendix, clamped and fired, thereby transecting the appendix, removed the Endo-SHANTELL. I then placed a bag, placed the appendix in the bag, then removed this through the supraumbilical incision. Placed the port back in the abdomen, copiously irrigated with normal saline, suctioned this out, looked around. Took pictures of the ovaries and the gallbladder. No other obvious pathology and at this point, placed the patient supine, removed all ports under direct visualization allowing the pneumoperitoneum to escape. Then started closing the incision, closing the fascia with the 0 Vicryl suture previously placed. Copiously irrigated all incisions with normal saline, closing the two small 5 mm incisions with a single interrupted 4-0 undyed Monocryl subcuticular stitch. Closed the supraumbilical incision with two interrupted 4-0 undyed Monocryl subcuticular stitches. Area was cleaned and dried and Dermabond placed as well as Band-Aids. The patient then transferred to recovery room in stable condition. Sponge, instrument and needle count correct at the end of the case. Job ID: [id number] DocumentID: [id number] Dictated Date: 02/28/2018 21:59:49 Iron Cutter Date: 03/01/2018 04:56:51 Dictated By: DO LISA COVINGTON
[2018-03-01] MEDS ORDERED: FLU QUADRIvalent (5+ YOA) 2018-2019 (AFLURIA) 0.5 ML IM ONE (07:15)
--- NOTE | 2018-03-01 07:29 | Anesthesia-General Post-Op ---
General Patient Condition Mental Status/LOC: Same as Preop Cardiovascular: Satisfactory Nausea/Vomiting: Absent Respiratory: Satisfactory Pain: Controlled Complications: Absent Post Op Complications Complications None Follow Up Care/Instructions Patient Instructions None needed. Anesthesia/Patient Condition Patient Condition Patient is doing well, no complaints, stable vital signs, no apparent adverse anesthesia problems. No complications reported per nursing. JORDAN NEGRETE CRNA Mar 01, 2018 07:29
[2018-03-01 08:00] VITALS: BP 114/73
[2018-03-01 09:42] VITALS: BP 114/73
== END 2018-03-01 09:42 | disposition home or self-care (01) ==
LOC: EDUNIT# 16:10 → ER 16:12 → SDC 18:45 → 4TH 03-01 04:08 → SDC 03-01 09:42
PROVIDERS: ATTEND Surgery
DX: K35.80 Unspecified acute appendicitis (principal)
CPT/HCPCS: 36415; 74177; 80053; 81000; 84703; 85025; 87088; 88304; 96361; 96374; 96375

== ENCOUNTER → 2019-04-20 | Outpatient (CLI) | payer BC ==
[~2019-04-20] MED LIST changes: +ACHD5005 PO
--- NOTE | 2019-04-20 18:17 | Diagnostic Imaging Report ---
Examination: Ultrasound pelvis Date: April 20, 2019. Indication: 24-year-old female, evaluation of intrauterine contraceptive device. Comparison: Abdomen and pelvis February 28, 2018. Pelvic ultrasound August 04, 2017. Technique: A sonogram of the pelvis was performed utilizing transabdominal and endovaginal approaches assessing emery-scale appearance and color Doppler flow. Findings: The uterus measures 9.8 x 5.0 x 6.3 cm. No focal uterine masses are seen. The endometrium measures 0.6 cm in diameter. There is an intrauterine contraceptive device within the endometrial cavity. The right ovary measures 3.5 cm x 1.6 cm x 1.8 cm. The left ovary measures 6.8 cm x 4.8 cm x 5.4 cm. There is a cystic mass which appears to be arising from the left ovary with internal septation and possible small peripheral mural nodule. There is no clearly demonstrated internal blood flow. This lesion measures 5.6 x 5.0 x 4.6 cm in size and is new since February 28, 2018. There is blood flow to both ovaries. No free pelvic fluid is demonstrated. Impression: 1. Complex cystic mass in the left adnexa most likely arising from the left ovary, measuring up to 5.6 cm in size. Recommend correlation with beta hCG levels to exclude ectopic which would be considered less likely given that the lesion is likely intraovarian. At minimum, follow-up pelvic ultrasound in six weeks is recommended to evaluate for possible physiologic etiology. Neoplastic etiology is in the differential diagnosis for the lesion. 2. Intrauterine contraceptive device within the endometrial cavity. 3. Additional evaluation of the ovaries is unremarkable. 4. No free pelvic fluid. Dictated by: Dictated on workstation # [id number]
== END ==
LOC: RAD 15:20
PROVIDERS: ATTEND Obstetrics & Gynecology
DX: T83.39XA Other mechanical complication of intrauterine contraceptive device, initial encounter (principal); N83.292 Other ovarian cyst, left side
CPT/HCPCS: 76830; 76856

== ENCOUNTER → 2019-05-15 | Outpatient (CLI) | payer BC ==
--- NOTE | 2019-05-15 14:17 | Diagnostic Imaging Report ---
PROCEDURE: US Non-ob pelvis comp/trans. TECHNIQUE: Multiple realtime grayscale images were obtained of the pelvis in various projections endovaginally. Transabdominal imaging was also performed. INDICATION: Ovarian cyst, recheck. COMPARISON: Correlation is made with recent pelvic ultrasound from 04/20/2019. FINDINGS: The uterus measures 7.8 x 4.2 x 7.3 cm. Endometrium is 2 mm in thickness. There is an IUD within the endometrial canal which appears to be appropriately centered. No myometrial mass is detected. Right ovary measures 3.2 x 2.0 x 2.1 cm and the left ovary measures 4.1 x 1.7 x 1.9 cm. Previously noted large septated left ovarian cyst is no longer visualized. Right ovary contains an approximately 18 mm x 14 mm cyst. Left ovary contains multiple follicles. No free fluid is seen. IMPRESSION: 1. Resolution of septated left ovarian cyst when compared with prior study 04/20/2019. Dictated by: Dictated on workstation # [id number]
== END ==
LOC: RAD 13:04
PROVIDERS: ATTEND Obstetrics & Gynecology
DX: N83.292 Other ovarian cyst, left side (principal)
CPT/HCPCS: 76830; 76856

== ENCOUNTER → 2020-12-16 | Outpatient (CLI) | payer BC ==
--- NOTE | 2020-12-16 09:27 | Diagnostic Imaging Report ---
EXAMINATION: US Retroperitoneal Complete. TECHNIQUE: Multiple real-time grayscale images were obtained over the kidneys in various projections bilaterally. HISTORY: LOW BACK PAIN COMPARISON: CT abdomen pelvis 02/28/2018 FINDINGS: The right kidney demonstrates normal echogenicity and cortical thickness. The right kidney measures 12.2 x 4.3 x 4.3 cm. No hydronephrosis. The left kidney demonstrates normal echogenicity and cortical thickness. The left kidney measures 12.4 x 4.5 x 5.0 cm. No hydronephrosis. The urinary bladder is normal. Bilateral ureteral jets are seen. IMPRESSION: 1. Unremarkable kidneys without hydronephrosis. Dictated by: Dictated on workstation # [id number]
== END ==
LOC: RAD 09:00
PROVIDERS: ATTEND Obstetrics & Gynecology
DX: M54.5 Low back pain (principal)
CPT/HCPCS: 76770

== ENCOUNTER → 2020-12-23 | Outpatient (CLI) | payer BC ==
--- NOTE | 2020-12-23 14:44 | Diagnostic Imaging Report ---
PROCEDURE: Pelvic comp/transvaginal sonogram. TECHNIQUE: Complete transabdominal and transvaginal pelvic ultrasound was performed. In addition, limited pelvic Doppler was performed. INDICATION: Pelvic pain and microscopic hematuria. FINDINGS: Uterus is anteverted measuring 8.5 x 4.1 x 6.3 cm. Endometrium is 4 mm in thickness. There appears to be an IUD centered within the endometrial canal. No myometrial mass is detected. Right ovary measures 3.2 x 1.6 x 2.0 cm and the left ovary measures 3.9 x 1.4 x 2.4 cm. Both ovaries contain follicles. There is blood flow to both ovaries. No adnexal mass is seen. There is trace free fluid. IMPRESSION: 1. The IUD appears to be appropriately centered within the endometrial canal. 2. Unremarkable transabdominal and transvaginal pelvic ultrasound. Dictated by: Dictated on workstation # [id number]
== END ==
LOC: RAD 13:30
PROVIDERS: ATTEND Obstetrics & Gynecology
DX: R10.2 Pelvic and perineal pain (principal); R31.29 Other microscopic hematuria; Z97.5 Presence of (intrauterine) contraceptive device
CPT/HCPCS: 76830; 76856